=== PATIENT | male | born 1975 | race African-American/Black ===

== ENCOUNTER 2022-07-29 16:51 | Emergency (ER) | payer OTHER, SELFPAY ==
[2022-07-29] VITALS (8 sets, daily range): BP systolic 185–210; BP diastolic 113–141; PULSE 70–87; RESP 12–20; TEMP 36.8; O2SAT 97–99; BMI 42.5
--- NOTE | 2022-07-29 16:56 | ED_ITS ---
HPI - General Adult General Chief complaint: Recheck/Abnormal Lab/Rx <BLAYNE Bergman - Last Filed: 07/29/22 17:03> Stated complaint: high blood pressure, diabetic, abd pain <BLAYNE Bergman - Last Filed: 07/29/22 17:03> Time Seen by Provider: 07/29/22 17:10 <BLAYNE Bergman - Last Filed: 07/29/22 17:03> Source: patient <Antonio Sage MD - Last Filed: 07/30/22 01:02> Mode of arrival: ambulatory <Antonio Sage MD - Last Filed: 07/30/22 01:02> History of Present Illness HPI narrative: Patient history of hypertension was in care home and taking amlodipine atenolol and hydrochlorothiazide ,doses not available but his blood pressure was almost control controlled. For last 2 weeks since released from the care home patient unable to find a PCP and has not taken his medications. Patient denies any headache no dizziness no palpitation patient blood pressure on arrival was 204/124 patient did have some diffuse abdominal discomfort and nausea no vomiting no diarrhea also patient has borderline diabetes diet controlled <Antonio Sage MD - Last Filed: 07/30/22 01:02> Related Data Home medications: Previous Rx's Medication Instructions Recorded amlodipine 10 mg tablet 10 mg PO DAILY #90 tabs 07/29/22 losartan 50 mg-hydrochlorothiazide 1 tab PO DAILY #90 tabs 07/29/22 12.5 mg tablet <BLAYNE Bergman - Last Filed: 07/29/22 17:03> Allergies/adverse reactions: Allergies Allergy/AdvReac Type Severity Reaction Status Date / Time lisinopril Allergy Unknown Unknown Verified 07/29/22 17:00 <BLAYNE Bergman - Last Filed: 07/29/22 17:03> Review of Systems Review of Systems: Yes all other systems are reviewed and are negative <Antonio Sage MD - Last Filed: 07/30/22 01:02> [facility] Social History Social History: Social History Substance Use Type: Marijuana Substance Use Frequency: Daily Advance Directives: No Advance Directives Information Provided: Yes <BLAYNE Bergman - Last Filed: 07/29/22 17:03> Physical Exam ED Vital Signs: Vital Signs - 24 hr 07/29/22 16:56 07/29/22 17:37 07/29/22 19:18 Temperature 98.2 F Pulse Rate 87 84 70 Respiratory Rate 20 12 16 Blood Pressure 198/141 H 204/124 H 199/133 H Pulse Oximetry 97 99 98 Oxygen Delivery Method Room Air Room Air Room Air 07/29/22 19:28 07/29/22 19:45 07/29/22 20:05 Temperature Pulse Rate 76 82 80 Respiratory Rate 16 Blood Pressure 185/124 H 195/126 H 198/122 H Pulse Oximetry 98 Oxygen Delivery Method Room Air 07/29/22 20:11 07/29/22 22:21 Temperature Pulse Rate 70 80 Respiratory Rate 14 12 Blood Pressure 197/113 H 210/121 H Pulse Oximetry 98 99 Oxygen Delivery Method Room Air Room Air BMI result Body Mass Index 42.5 <BLAYNE Bergman - Last Filed: 07/29/22 17:03> Vital Signs - 24 hr 07/29/22 16:56 07/29/22 17:37 07/29/22 19:18 Temperature 98.2 F Pulse Rate 87 84 70 Respiratory Rate 20 12 16 Blood Pressure 198/141 H 204/124 H 199/133 H Pulse Oximetry 97 99 98 Oxygen Delivery Method Room Air Room Air Room Air 07/29/22 19:28 07/29/22 19:45 07/29/22 20:05 Temperature Pulse Rate 76 82 80 Respiratory Rate 16 Blood Pressure 185/124 H 195/126 H 198/122 H Pulse Oximetry 98 Oxygen Delivery Method Room Air 07/29/22 20:11 07/29/22 22:21 Temperature Pulse Rate 70 80 Respiratory Rate 14 12 Blood Pressure 197/113 H 210/121 H Pulse Oximetry 98 99 Oxygen Delivery Method Room Air Room Air BMI result Body Mass Index 42.5 <Antonio Sage MD - Last Filed: 07/30/22 01:02> Appearance: Alert. Oriented X3. No acute distress. Eyes: PERRLA, No Nystagmus ENT: Pharynx normal. Oral Mucosa moist Neck: Normal inspection. Neck supple. CVS: Normal heart rate and rhythm. Pulses normal. Respiratory: No respiratory distress. Equal air entry bilateral, no wheezing/rales/rhonchi Abdomen: Soft and nontender. Bowel sounds are present, no mass palpable, no CVA tenderness Skin: Skin warm and dry. Normal skin color. Normal skin turgor. Extremities: No lower extremity edema. No calf tenderness Neuro: Oriented X 3. No motor deficit. No sensory deficit.No cerebellar signs , cranial nerves II-XII intact <Antonio Sage MD - Last Filed: 07/30/22 01:02> Course Course Course Narrative: This is an RME: Additional HPI, ROS, PE not included below will be deferred to primary provider. This is a [id number], with a hx of hypertension, who presents to the emergency department with complaints of hypertension. Patient reports that he ran out of his blood pressure medication 2.5 weeks ago. [facility] and has not had a provider to fill these medications. He sta soheila he was previously on Atenolol, HCTZ, amolodipine. He was seen at an ER in [place], [place] where they had filled these medications. He states that he is feeling off , reports headache, dizziness. He has had intermittent chest pain, denies current chest pain. Current BP left arm 225/145 right arm 198/141 Plan: EKG, labs, UA. <BLAYNE Bergman - Last Filed: 07/29/22 17:03> Medications Administered Discontinued Medications Generic Name Dose Route Start Last Admin Trade Name Willq PRN Reason Stop Dose Admin Amlodipine Besylate 10 mg 07/29/22 17:54 07/29/22 18:04 Amlodipine Besylate 10 Mg Tablet PO 07/29/22 17:55 10 mg ONCE ONE Administration Protocol Clonidine HCl 0.2 mg 07/29/22 22:14 07/29/22 22:21 Clonidine Hcl 0.2 Mg Tablet PO 07/29/22 22:15 0.2 mg ONCE ONE Administration Protocol Hydralazine HCl 10 mg 07/29/22 21:39 07/29/22 21:50 Hydralazine Hcl 20 Mg/Ml Vial IVPUSH 07/29/22 21:40 10 mg ONCE ONE Administration Protocol Labetalol HCl 20 mg 07/29/22 17:51 07/29/22 18:04 Labetalol Hcl 100 Mg/20 Ml Vial IVPUSH 07/29/22 17:52 20 mg ONCE ONE Administration Labetalol HCl 20 mg 07/29/22 19:18 07/29/22 19:27 Labetalol Hcl 100 Mg/20 Ml Vial IVPUSH 07/29/22 19:19 20 mg ONCE ONE Administration Losartan Potassium 50 mg 07/29/22 20:33 07/29/22 20:39 Losartan Potassium 50 Mg Tablet PO 07/29/22 20:34 50 mg ONCE ONE Administration Protocol <BLAYNE Bergman - Last Filed: 07/29/22 17:03> Medications Administered Discontinued Medications Generic Name Dose Route Start Last Admin Trade Name Willq PRN Reason Stop Dose Admin Amlodipine Besylate 10 mg 07/29/22 17:54 07/29/22 18:04 Amlodipine Besylate 10 Mg Tablet PO 07/29/22 17:55 10 mg ONCE ONE Administration Protocol Clonidine HCl 0.2 mg 07/29/22 22:14 07/29/22 22:21 Clonidine Hcl 0.2 Mg Tablet PO 07/29/22 22:15 0.2 mg ONCE ONE Administration Protocol Hydralazine HCl 10 mg 07/29/22 21:39 07/29/22 21:50 Hydralazine Hcl 20 Mg/Ml Vial IVPUSH 07/29/22 21:40 10 mg ONCE ONE Administration Protocol Labetalol HCl 20 mg 07/29/22 17:51 07/29/22 18:04 Labetalol Hcl 100 Mg/20 Ml Vial IVPUSH 07/29/22 17:52 20 mg ONCE ONE Administration Labetalol HCl 20 mg 07/29/22 19:18 07/29/22 19:27 Labetalol Hcl 100 Mg/20 Ml Vial IVPUSH 07/29/22 19:19 20 mg ONCE ONE Administration Losartan Potassium 50 mg 07/29/22 20:33 07/29/22 20:39 Losartan Potassium 50 Mg Tablet PO 07/29/22 20:34 50 mg ONCE ONE Administration Protocol <Antonio Sage MD - Last Filed: 07/30/22 01:02> Medical Decision Making Medical Decision Making MDM Narrative: Patient with uncontrolled hypertension without any signs of end organ damage requiring multiple doses of IV antihypertensive labetalol hydralazine and p.o. amlodipine and losartan and still blood pressure elevated patient refused to stay in the hospital further was given 0.2 mg of clonidine and advised to come back to the ER if blood pressure continues to be elevated patient signed against medical advice <Antonio Sage MD - Last Filed: 07/30/22 01:02> Lab Data MDM Lab Attestation statement: I reviewed the patient's lab results. <Antonio Sage MD - Last Filed: 07/30/22 01:02> Result Diagrams: 07/29/22 17:14 07/29/22 17:14 <BLAYNE Bergman - Last Filed: 07/29/22 17:03> Labs: Lab Results 07/29/22 07/29/22 07/29/22 Range/Units 17:14 17:14 17:14 WBC 6.6 (4.8-10.8) X10*3/uL RBC 5.53 (4.60-5.80) X10*6/uL Hgb 14.8 (14.0-18.0) g/dl Hct 44.2 (42.0-52.0) % MCV 79.9 L (80.0-98.0) fL MCH 26.8 L (27.0-33.0) pg MCHC 33.5 (31.0-36.0) g/dl RDW 14.8 (11.0-16.0) % Plt Count 256 (160-400) X10*3/uL MPV 9.6 (9.4-12.4) fL Immature Gran % (Auto) 0.3 (0.0-0.4) % Neut % (Auto) 55.3 (45-73) % Lymph % (Auto) 33.9 (20-40) % [place] % (Auto) 7.6 (2-11) % Eos % (Auto) 2.4 (0-4) % Baso % (Auto) 0.5 (0-2) % Lymph # (Auto) 2.2 (1.2-4.9) X10*3/uL [place] # (Auto) 0.5 (0.1-1.2) X10*3/uL Eos # (Auto) 0.2 (0.0-0.4) X10*3/uL Baso # (Auto) 0.0 (0.0-0.2) X10*3/uL Abs Immat Gran (auto) 0.02 (0.00-0.03) X10*3/uL Absolute Neuts (auto) 3.7 (2.0-8.3) x10*3/uL Absolute Nucleated RBC 0.000 (0.0-0.012) X10*3/uL Nucleated RBC % (auto) 0.0 (0.0-0.2) /100WBC Sodium 139 (135-145) mmol/L Potassium 3.4 (3.3-5.1) mmol/L Chloride 105 (96-108) mmol/L Carbon Dioxide 26 (22-29) mmol/L Anion Gap 11 L (12-20) BUN 10 (9-16) mg/dL Creatinine 1.36 (0.5-1.4) mg/dL Estim Creat Clear Calc 112.1 Estimated GFR 57 Random Glucose 140 H (60-115) mg/dL Calcium 9.4 (8.4-10.2) mg/dL Magnesium 1.6 (1.6-2.6) mg/dL Total Bilirubin 1.8 H (0.0-1.0) mg/dL Direct Bilirubin 0.4 (0.0-0.5) mg/dL AST 18 (5-37) U/L ALT 18 (0-40) U/L Alkaline Phosphatase 99 (39-117) U/L Troponin I High Sens 46.4 H (<3.5-35.0) ng/L Total Protein 7.2 (6.5-8.0) g/dL Albumin 4.1 (3.5-5.0) g/dL Lipase 44 (8-78) U/L 07/29/22 Range/Units 20:42 WBC (4.8-10.8) X10*3/uL RBC (4.60-5.80) X10*6/uL Hgb (14.0-18.0) g/dl Hct (42.0-52.0) % MCV (80.0-98.0) fL MCH (27.0-33.0) pg MCHC (31.0-36.0) g/dl RDW (11.0-16.0) % Plt Count (160-400) X10*3/uL MPV (9.4-12.4) fL Immature Gran % (Auto) (0.0-0.4) % Neut % (Auto) (45-73) % Lymph % (Auto) (20-40) % [place] % (Auto) (2-11) % Eos % (Auto) (0-4) % Baso % (Auto) (0-2) % Lymph # (Auto) (1.2-4.9) X10*3/uL [place] # (Auto) (0.1-1.2) X10*3/uL Eos # (Auto) (0.0-0.4) X10*3/uL Baso # (Auto) (0.0-0.2) X10*3/uL Abs Immat Gran (auto) (0.00-0.03) X10*3/uL Absolute Neuts (auto) (2.0-8.3) x10*3/uL Absolute Nucleated RBC (0.0-0.012) X10*3/uL Nucleated RBC % (auto) (0.0-0.2) /100WBC Sodium (135-145) mmol/L Potassium (3.3-5.1) mmol/L Chloride (96-108) mmol/L Carbon Dioxide (22-29) mmol/L Anion Gap (12-20) BUN (9-16) mg/dL Creatinine (0.5-1.4) mg/dL Estim Creat Clear Calc Estimated GFR Random Glucose (60-115) mg/dL Calcium (8.4-10.2) mg/dL Magnesium (1.6-2.6) mg/dL Total Bilirubin (0.0-1.0) mg/dL Direct Bilirubin (0.0-0.5) mg/dL AST (5-37) U/L ALT (0-40) U/L Alkaline Phosphatase (39-117) U/L Troponin I High Sens 48.9 H (<3.5-35.0) ng/L Total Protein (6.5-8.0) g/dL Albumin (3.5-5.0) g/dL Lipase (8-78) U/L <BLAYNE Bergman - Last Filed: 07/29/22 17:03> Lab Results 04/29/23 04/29/23 04/29/23 Range/Units 17:14 17:14 17:14 WBC 6.6 (4.8-10.8) X10*3/uL RBC 5.53 (4.60-5.80) X10*6/uL Hgb 14.8 (14.0-18.0) g/dl Hct 44.2 (42.0-52.0) % MCV 79.9 L (80.0-98.0) fL MCH 26.8 L (27.0-33.0) pg MCHC 33.5 (31.0-36.0) g/dl RDW 14.8 (11.0-16.0) % Plt Count 256 (160-400) X10*3/uL MPV 9.6 (9.4-12.4) fL Immature Gran % (Auto) 0.3 (0.0-0.4) % Neut % (Auto) 55.3 (45-73) % Lymph % (Auto) 33.9 (20-40) % [place] % (Auto) 7.6 (2-11) % Eos % (Auto) 2.4 (0-4) % Baso % (Auto) 0.5 (0-2) % Lymph # (Auto) 2.2 (1.2-4.9) X10*3/uL [place] # (Auto) 0.5 (0.1-1.2) X10*3/uL Eos # (Auto) 0.2 (0.0-0.4) X10*3/uL Baso # (Auto) 0.0 (0.0-0.2) X10*3/uL Abs Immat Gran (auto) 0.02 (0.00-0.03) X10*3/uL Absolute Neuts (auto) 3.7 (2.0-8.3) x10*3/uL Absolute Nucleated RBC 0.000 (0.0-0.012) X10*3/uL Nucleated RBC % (auto) 0.0 (0.0-0.2) /100WBC Sodium 139 (135-145) mmol/L Potassium 3.4 (3.3-5.1) mmol/L Chloride 105 (96-108) mmol/L Carbon Dioxide 26 (22-29) mmol/L Anion Gap 11 L (12-20) BUN 10 (9-16) mg/dL Creatinine 1.36 (0.5-1.4) mg/dL Estim Creat Clear Calc 112.1 Estimated GFR 57 Random Glucose 140 H (60-115) mg/dL Calcium 9.4 (8.4-10.2) mg/dL Magnesium 1.6 (1.6-2.6) mg/dL Total Bilirubin 1.8 H (0.0-1.0) mg/dL Direct Bilirubin 0.4 (0.0-0.5) mg/dL AST 18 (5-37) U/L ALT 18 (0-40) U/L Alkaline Phosphatase 99 (39-117) U/L Troponin I High Sens 46.4 H (<3.5-35.0) ng/L Total Protein 7.2 (6.5-8.0) g/dL Albumin 4.1 (3.5-5.0) g/dL Lipase 44 (8-78) U/L 07/29/22 Range/Units 20:42 WBC (4.8-10.8) X10*3/uL RBC (4.60-5.80) X10*6/uL Hgb (14.0-18.0) g/dl Hct (42.0-52.0) % MCV (80.0-98.0) fL MCH (27.0-33.0) pg MCHC (31.0-36.0) g/dl RDW (11.0-16.0) % Plt Count (160-400) X10*3/uL MPV (9.4-12.4) fL Immature Gran % (Auto) (0.0-0.4) % Neut % (Auto) (45-73) % Lymph % (Auto) (20-40) % [place] % (Auto) (2-11) % Eos % (Auto) (0-4) % Baso % (Auto) (0-2) % Lymph # (Auto) (1.2-4.9) X10*3/uL [place] # (Auto) (0.1-1.2) X10*3/uL Eos # (Auto) (0.0-0.4) X10*3/uL Baso # (Auto) (0.0-0.2) X10*3/uL Abs Immat Gran (auto) (0.00-0.03) X10*3/uL Absolute Neuts (auto) (2.0-8.3) x10*3/uL Absolute Nucleated RBC (0.0-0.012) X10*3/uL Nucleated RBC % (auto) (0.0-0.2) /100WBC Sodium (135-145) mmol/L Potassium (3.3-5.1) mmol/L Chloride (96-108) mmol/L Carbon Dioxide (22-29) mmol/L Anion Gap (12-20) BUN (9-16) mg/dL Creatinine (0.5-1.4) mg/dL Estim Creat Clear Calc Estimated GFR Random Glucose (60-115) mg/dL Calcium (8.4-10.2) mg/dL Magnesium (1.6-2.6) mg/dL Total Bilirubin (0.0-1.0) mg/dL Direct Bilirubin (0.0-0.5) mg/dL AST (5-37) U/L ALT (0-40) U/L Alkaline Phosphatase (39-117) U/L Troponin I High Sens 48.9 H (<3.5-35.0) ng/L Total Protein (6.5-8.0) g/dL Albumin (3.5-5.0) g/dL Lipase (8-78) U/L <Antonio Sage MD - Last Filed: 07/30/22 01:02> Independent Interpretation I performed an independent interpretation of an: EKG <Antonio Sage MD - Last Filed: 07/30/22 01:02> Interpretation: Heart rate 90 normal intervals and axis no acute ST T wave changes no acut e ischemia <Antonio Sage MD - Last Filed: 07/30/22 01:02> Critical Care Time Critical Care Time Critical Care Time: Yes <Antonio Sage MD - Last Filed: 07/30/22 01:02> Total Critical Care Time: 75 <Antonio Sage MD - Last Filed: 07/30/22 01:02> Attestation: The patient was critically ill with a high probability of imminent or life threatening deterioration. I spent greater than 80 minutes of discontinuous time evaluating the patient,delivering critical care at the bedside, discussing and evaluating pertinent data with consultants. Critical care time does not include time spent performing separately billable procedures or teaching. Total time spent performing critical care was 75 minutes. <Antonio Sage MD - Last Filed: 07/30/22 01:02> Discharge Plan Discharge Clinical Impression: Hypertension, uncontrolled <BLAYNE Bergman - Last Filed: 07/29/22 17:03> Patient Disposition: Home, Self-Care <BLAYNE Bergman - Last Filed: 07/29/22 17:03> Instructions: Chronic Hypertension (ED) <BLAYNE Bergman - Last Filed: 07/29/22 17:03> Additional Instructions: Decrease salt intake Take blood pressure medication as prescribed Normal blood pressure should be less than 135/85 Follow-up with PCP Report to the ER a blood pressure higher than 200/120 <BLAYNE Bergman - Last Filed: 07/29/22 17:03> Prescriptions: New amlodipine 10 mg tablet 10 mg PO DAILY Qty: 90 3RF losartan-hydrochlorothiazide 50-12.5 mg tablet 1 tab PO DAILY Qty: 90 3RF <BLAYNE Bergman - Last Filed: 07/29/22 17:03> Referrals: Sue Strauss MD [Physician] - 1 week <BLAYNE Bergman - Last Filed: 07/29/22 17:03> Stand Alone Forms: Against Medical Advice <BLAYNE Bergman - Last Filed: 07/29/22 17:03> Interventions: ED Discharge Assessment Last Done: 07/29/22 22:41 <BLAYNE Bergman - Last Filed: 07/29/22 17:03> Discharge Date/Time: 07/29/22 22:43 <BLAYNE Bergman - Last Filed: 07/29/22 17:03>
--- NOTE | 2022-07-29 17:00 | ECG_ITS ---
Test Reason : HYPERTENTION Blood Pressure : / mmHG Vent. Rate : 090 BPM Atrial Rate : 090 BPM P-R Int : 150 ms QRS Dur : 082 ms QT Int : 360 ms P-R-T Axes : 039 -02 -49 degrees QTc Int : 440 ms Normal sinus rhythm Nonspecific ST and T wave abnormality Abnormal ECG No previous ECGs available Referred By: Freida Carlisle Electronically Signed By:Ervin Nash
[2022-07-29 17:19] LABS: MANUAL DIFF FLAG NO
[2022-07-29 17:20] LABS: Basophils Percent Auto 0.5 % (0-2); Eosinophils Absolute Auto 0.2 X10*3/uL (0.0-0.4); Eosinophils Percent Auto 2.4 % (0-4); Hematocrit 44.2 % (42.0-52.0); Hemoglobin 14.8 g/dl (14.0-18.0); Imm Gran Abs Auto 0.02 X10*3/uL (0.00-0.03); Imm Gran Pct Auto 0.3 % (0.0-0.4); Lymphocytes Absolute Auto 2.2 X10*3/uL (1.2-4.9); Lymphocytes Percent Auto 33.9 % (20-40); Mean Corpuscular HGB Conc 33.5 g/dl (31.0-36.0); Mean Corpuscular Hemoglobin 26.8 pg (27.0-33.0); Mean Corpuscular Volume 79.9 fL (80.0-98.0); Mean Platelet Volume 9.6 fL (9.4-12.4); Monocytes Absolute Auto 0.5 X10*3/uL (0.1-1.2); Monocytes Percent Auto 7.6 % (2-11); Neutrophils Absolute Auto 3.7 x10*3/uL (2.0-8.3); Neutrophils Percent Auto 55.3 % (45-73); Platelet Count 256 X10*3/uL (160-400); Red Blood Count 5.53 X10*6/uL (4.60-5.80); Red Cell Distribution Width 14.8 % (11.0-16.0); White Blood Count 6.6 X10*3/uL (4.8-10.8)
[2022-07-29 17:43] LABS: Alanine Aminotransferase 18 U/L (0-40); Albumin Level 4.1 g/dL (3.5-5.0); Alkaline Phosphatase 99 U/L (39-117); Anion Gap 11 (12-20); Aspartate Amino Transferase 18 U/L (5-37); Bilirubin Direct 0.4 mg/dL (0.0-0.5); Bilirubin Total 1.8 mg/dL (0.0-1.0); Blood Urea Nitrogen 10 mg/dL (9-16); Calcium 9.4 mg/dL (8.4-10.2); Carbon Dioxide 26 mmol/L (22-29); Chloride 105 mmol/L (96-108); Creatinine Clr Calc Pharmacy 112.1; Estimated Glomerular Filt Rate 57; Glucose Random 140 mg/dL (60-115); Lipase 44 U/L (8-78); Magnesium 1.6 mg/dL (1.6-2.6); Potassium 3.4 mmol/L (3.3-5.1); Sodium 139 mmol/L (135-145); Total Protein 7.2 g/dL (6.5-8.0)
[2022-07-29 17:49] LABS: Troponin-I High Sensitivity 46.4 ng/L (<3.5-35.0)
[2022-07-29] MEDS: amLODIPine Besylate 10 MG TABLET PO (18:04)
[2022-07-29] MEDS: Labetalol HCL 100 MG/20 ML VIAL 20 MG IVPUSH ×2 (18:04→19:27)
[2022-07-29] MEDS: Losartan Potassium 50 MG TABLET PO (20:39)
[2022-07-29 21:18] LABS: Troponin-I High Sensitivity 48.9 ng/L (<3.5-35.0)
[2022-07-29] MEDS: hydrALAZINE HCl 20 MG/ML VIAL 10 MG IVPUSH (21:50)
[2022-07-29] MEDS: cloNIDine HCL 0.2 MG TABLET PO (22:21)
[2022-07-30 09:06] LABS: Estimated Average Glucose 140 mg/dL; Hemoglobin A1c % 6.5 %
== END 2022-07-29 22:43 | disposition home or self-care (01) ==
PROVIDERS: Physician Assistant Medical; Emergency Provider Internal Medicine
DX: I10 Essential (primary) hypertension (principal); E11.9 Type 2 diabetes mellitus without complications
CPT/HCPCS: 36415; 80048; 80076; 83036; 83690; 83735; 84484; 85025; 93005; 96374; 96375; 96376; 99284; 99285